=== PATIENT | male | born 2000 | race African-American/Black ===

== ENCOUNTER 2021-01-08 22:43 | Emergency (ER) | payer BC ==
[~2021-01-08] VITALS: Ht 170.2 cm; Wt 78.0 kg
[2021-01-08] MEDS ORDERED: PROAIR HFA8.5 GM INH (22:56)
[2021-01-09] MEDS ORDERED: KEFLEX250 MG PO (00:16)
[2021-01-09] MEDS ORDERED: TRAMADOL 50 MG50 MG PO (00:16)
[2021-01-09 00:24] VITALS: BP 178/82
== END 2021-01-09 00:24 | disposition home or self-care (01) ==
LOC: M.ERS 22:43
DX: S61.211A Laceration without foreign body of left index finger without damage to nail, initial encounter (principal); W26.0XXA Contact with knife, initial encounter; Y93.89 Activity, other specified; Y92.89 Other specified places as the place of occurrence of the external cause; Y99.8 Other external cause status; J45.909 Unspecified asthma, uncomplicated